=== PATIENT | female | born 1970 | race Caucasian/White ===

== ENCOUNTER 2022-04-16 10:18 | Outpatient (CLI) | payer BC, SELFPAY ==
[2022-04-16 12:32] LABS: Albumin* 4.9 g/dL (3.3-5.0); Chloride* 101 mmol/L (96-114); Sodium* 141 mmol/L (135-149)
[2022-04-16 12:34] LABS: Bilirubin Total* 0.8 mg/dL (0.1-1.5); Carbon Dioxide* 32 mmol/L (20-32); Cholesterol* 224 mg/dL (90-199); Creatinine* 0.9 mg/dL (0.5-1.5); Estimated Glomerular Filt Rate 76 ml/min; Total Protein* 8.3 g/dL (6.0-8.3)
[2022-04-16 12:35] LABS: Alanine Aminotransferase* 22 U/L (4-35); Alkaline Phosphatase* 123 U/L (40-150); Aspartate Amino Transferase* 31 U/L (12-35); Blood Urea Nitrogen* 24 mg/dL (7-30); Glucose* 98 mg/dL (60-115); HDL Cholesterol* 47 mg/dL (>=50); LDL Cholesterol Calculated 136 mg/dL (<100); Triglycerides* 205 mg/dL (40-149)
== END 2022-04-16 10:19 | disposition home or self-care (01) ==
LOC: NFLDREF 10:21
PROVIDERS: PCP Physician Assistant Medical; Visit Provider Physician Assistant Medical
DX: Z00.00 Encounter for general adult medical examination without abnormal findings (principal); E78.5 Hyperlipidemia, unspecified; I10 Essential (primary) hypertension; D58.2 Other hemoglobinopathies; G47.9 Sleep disorder, unspecified; J01.90 Acute sinusitis, unspecified
CPT/HCPCS: 80053; 80061

== ENCOUNTER 2022-04-21 14:56 | Outpatient (CLI) | payer BC, SELFPAY ==
[2022-04-25 01:05] LABS: Erythropoietin 7 mU/mL (4-27)
== END 2022-04-21 14:57 | disposition home or self-care (01) ==
LOC: LAB 14:59
PROVIDERS: PCP Physician Assistant Medical; Visit Provider Physician Assistant Medical
DX: D58.2 Other hemoglobinopathies (principal); I10 Essential (primary) hypertension
CPT/HCPCS: 36415; 82668; 84443

== ENCOUNTER 2022-04-29 09:20 | Outpatient (CLI) | payer BC, SELFPAY ==
[2022-04-29 13:27] LABS: Iron* 190 ug/dL (37-170)
[2022-04-29 13:36] LABS: Percent Iron Saturation 56 % (20-50); Total Iron Binding Capacity 341 ug/dL (265-497)
[2022-04-29 17:19] LABS: Ferritin* 64.3 ng/mL (11.1-264.0)
== END 2022-04-29 09:21 | disposition home or self-care (01) ==
PROVIDERS: PCP Physician Assistant Medical; Visit Provider Physician Assistant Medical
DX: D58.2 Other hemoglobinopathies (principal); I10 Essential (primary) hypertension
CPT/HCPCS: 82728; 83540; 83550; 87086

== ENCOUNTER 2022-06-22 15:27 | Outpatient (CLI) | payer BC, SELFPAY ==
--- NOTE | 2022-06-22 15:40 | CRLHL7_ITS ---
For Patients: As a result of the Century Cures Act, medical imaging exams and procedure reports are released immediately into your electronic medical record. You may view this report before your referring provider. If you have questions, please contact your health care provider. BILATERAL SCREENING MAMMOGRAM WITH COMPUTER-AIDED DETECTION TECHNIQUE: CC and MLO views were obtained. These mammographic images have been obtained using full-field digital technique. These mammographic images were interpreted with the benefit of computer-aided detection. COMPARISON FILM: 05/05/18, 04/30/13, 07/11/10. FINDINGS: There are scattered areas of fibroglandular density IMPRESSION: There is no radiographic evidence for malignancy. ASSESSMENT: BI-RADS Category 1: Negative RECOMMENDATION: Routine screening mammogram in 1 year. A lay language report of this examination will be provided to the patient. Jordan Hernandez M.D. Diagnostic Radiologist [email or web address] NINA/jaye / be/Dictated by: Jordan Hernandez MD @ 06/23/2022 12:14:00 PM (Electronically Signed)
--- NOTE | 2022-06-30 11:03 | ONC.NURNOTE ---
Addendum entered by Yeimy Tse RN 09/16/22 10:00: This patient was discussed with Dr. Holman yesterday, and she is okay to be seen in September. She does want patient to start on 81mg of aspirin daily until she is seen, left message on machine for patient informing her of this and to call with any questions. Addendum entered by Yeimy Tes RN 07/27/22 11:21: Manager Android notified by nursing that patient called back on 07/15/22 stating that she needed an appointment at 1600. She was told that Dr. Hauser does not see patients this late in the day, patient told nursing that she would call back once she reaches out to substitutes. No return call to [facility], so another message left for patient asking to call back and schedule per Elisha Mas. Will hold onto referral for two more weeks. Addendum entered by Yeimy Tse RN 07/08/22 09:08: Left messages on 07/02/2022 and 07/08/2022 - no return calls. Ordering provider office notified. Original Note: Late entry: LMOM for patient to call office to schedule consult 06/29/2022.
== END 2022-06-22 15:28 | disposition home or self-care (01) ==
LOC: MAMMO 15:27
PROVIDERS: PCP Physician Assistant Medical; Visit Provider Physician Assistant Medical
DX: Z12.31 Encounter for screening mammogram for malignant neoplasm of breast (principal)
CPT/HCPCS: 77063; 77067

== ENCOUNTER 2022-10-21 14:25 | Outpatient (RCR) | payer BC, SELFPAY ==
[2022-10-21 16:18] LABS: Basophils Absolute Auto 0.03 K/uL (0.00-0.30); Basophils Percent Auto 0.5 % (0.0-3.0); Eosinophils Absolute Auto 0.41 K/uL (0.00-0.50); Eosinophils Percent Auto 6.3 % (0.0-7.0); Hematocrit 46.9 % (33.0-51.0); Hemoglobin* 15.6 gm/dL (12.0-16.0); Immature Granulocytes Abs Auto 0.01 K/uL (0.00-0.30); Immature Granulocytes Pct Auto 0.2 %; Lymphocytes Absolute Auto 1.88 K/uL (0.90-2.90); Lymphocytes Percent Auto 29.1 % (20-44); Mean Corpuscular HGB Conc 33 gm/dL (32-36); Mean Corpuscular Hemoglobin 31 pg (26-34); Mean Corpuscular Volume 94 fL (80-100); Monocytes Percent Auto 8.2 % (0.0-11.0); Neutrophils Absolute Auto 3.61 K/uL (1.7-7.0); Neutrophils Percent Auto 55.7 % (42.0-72.0); Platelet Count* 246 K/uL (140-440); RDW Coefficient of Variation % 12.6 % (11.5-15.5); Red Blood Count 4.98 m/uL (4.00-5.20); White Blood Count* 6.47 K/uL (4.50-11.00)
[2022-10-21 16:36] LABS: Slide Review Reflex No
[2022-10-21 16:56] LABS: Albumin* 4.7 g/dL (3.3-5.0)
[2022-10-21 16:58] LABS: Cholesterol* 206 mg/dL (90-199)
[2022-10-21 16:59] LABS: Alanine Aminotransferase* 25 U/L (4-35); Alkaline Phosphatase* 90 U/L (40-150); Aspartate Amino Transferase* 30 U/L (12-35); Bilirubin Direct* 0.2 mg/dL (0.0-0.5); Bilirubin Total* 0.7 mg/dL (0.1-1.5); HDL Cholesterol* 69 mg/dL (>=50); LDL Cholesterol Calculated 100 mg/dL (<100); Triglycerides* 183 mg/dL (40-149)
[2022-10-23 15:48] LABS: Erythropoietin 8 mU/mL (4-27)
--- NOTE | 2022-11-30 13:55 | ONC.NURNOTE ---
Patient called and updated on results of all testing and plan. Dr. Holman stated labs are negative and there was no bone marrow issue and she should follow up every 6 months with CBC with primary. Patient already had labs done 11/29/2022
== END 2023-04-19 23:59 | disposition home or self-care (01) ==
LOC: CCIC 14:25
PROVIDERS: Clinical Nurse Specialist; PCP Physician Assistant Medical; Visit Provider Internal Medicine Hematology & Oncology
DX: D58.2 Other hemoglobinopathies (principal)
CPT/HCPCS: 36415; 80061; 80076; 81219; 81270; 82668; 85025; 99202; 99203; 99212

== ENCOUNTER 2022-11-17 14:51 | Outpatient (CLI) | payer BC, SELFPAY ==
[2022-11-21 09:05] LABS: Renin Activity 0.3 ng/mL/hr
== END 2022-11-17 14:52 | disposition home or self-care (01) ==
PROVIDERS: PCP Physician Assistant Medical; Visit Provider Physician Assistant Medical
DX: I10 Essential (primary) hypertension (principal); E78.5 Hyperlipidemia, unspecified; E87.6 Hypokalemia; F41.9 Anxiety disorder, unspecified; F32.A Depression, unspecified
CPT/HCPCS: 82088; 84244; 84443

== ENCOUNTER 2023-09-08 07:53 | Outpatient (CLI) | payer BC, SELFPAY | END 2023-09-08 07:54 | disposition home or self-care (01) | LOC: NFLDREF 09-09 13:49 | PROVIDERS: PCP Physician Assistant Medical; Referring Provider Physician Assistant Medical; Visit Provider Physician Assistant Medical | DX: Z00.00 Encounter for general adult medical examination without abnormal findings (principal); E78.5 Hyperlipidemia, unspecified; I10 Essential (primary) hypertension; R53.83 Other fatigue; Z79.899 Other long term (current) drug therapy | CPT/HCPCS: 80061; 87086 ==

== ENCOUNTER 2023-09-14 16:22 | Outpatient (CLI) | payer BC, SELFPAY ==
[2023-09-14 23:40] LABS: Chlamydia DNA Amplified* NOT DETECTED (No Detected); GC DNA Amplified* NOT DETECTED (No Detected)
== END 2023-09-14 16:23 | disposition home or self-care (01) ==
PROVIDERS: PCP Physician Assistant Medical; Visit Provider Physician Assistant Medical
DX: Z00.00 Encounter for general adult medical examination without abnormal findings (principal); R53.83 Other fatigue; I10 Essential (primary) hypertension; E78.5 Hyperlipidemia, unspecified; E87.6 Hypokalemia; Z79.899 Other long term (current) drug therapy
CPT/HCPCS: 80053; 82306; 84443; 87491; 87591

== ENCOUNTER 2023-11-25 15:41 | Outpatient (CLI) | payer BC, SELFPAY ==
--- NOTE | 2023-11-25 16:00 | CT_ITS ---
Patient: RENE GODINEZ Facility:?[facility] Patient ID:?[id number] Site Patient ID:?[id number]. Site :?1970 Study:?CT-Chest W/O LOW DOSE LUNG SCREENING-11/25/2023 4:14:10 PM Ordering Physician:LISA Final Report: INDICATION: Lung cancer screening. Smoking history. TECHNIQUE: CT chest low dose without contrast. COMPARISON: None. FINDINGS: Lungs and pleural spaces: No suspicious nodules or infiltrates. Pleural spaces are clear. Heart and vasculature: Heart size is normal. Thoracic aorta and pulmonary artery are normal in caliber. Lymph nodes and mediastinum: No mediastinal, hilar, or axillary adenopathy. Chest wall: Unremarkable. Upper abdomen: Normal. Bones: 2.8 cm osseous excrescence arising from the medial aspect of the scapula with marrow continuity. IMPRESSION: 1. No suspicious lung lesions. Lung-RADS Category 1: NEGATIVE. Continue annual screening with LDCT in 12 months. 2. 2.8 cm osseous excrescence arising from the medial aspect of the scapula with marrow continuity. Findings consistent with an osteochondroma Please note that all CT scans at this facility use dose modulation, iterative reconstruction, and/or weight-based dosing when appropriate to reduce radiation dose to as low as reasonably achievable. Dictated by Vamshi Tipton MD @ 11/26/2023 11:21:50 PM Signed by:?Vamshi Tipton MD @11/26/2023 11:21:50 PM (Electronic Signature)
== END 2023-11-25 15:42 | disposition home or self-care (01) ==
PROVIDERS: PCP Physician Assistant Medical; Visit Provider Physician Assistant Medical
DX: Z12.2 Encounter for screening for malignant neoplasm of respiratory organs (principal); Z87.891 Personal history of nicotine dependence
CPT/HCPCS: 71271

== ENCOUNTER 2024-02-01 15:18 | Outpatient (CLI) | payer BC, SELFPAY ==
--- NOTE | 2024-02-01 15:20 | MM_ITS ---
Patient: RENE GODINEZ Facility:?[facility] Patient ID:?[id number] Site Patient ID:?[id number]. Site :?1970 Study:?XRay-Breast Bilateral 3D W/CAD-02/01/2024 3:42:08 PM Ordering Physician:?Elisha Zaldivar Final Report: BILATERAL SCREENING MAMMOGRAM WITH COMPUTER-AIDED DETECTION AND TOMOSYNTHESIS TECHNIQUE: CC and MLO views were obtained. These mammographic images have been obtained using full-field digital technique. These mammographic images were interpreted with the benefit of computer-aided detection. Breast Tomosynthesis was used in this interpretation. COMPARISON FILM: 06/22/22, 05/05/18, 01/06/16. FINDINGS: There are scattered areas of fibroglandular density. IMPRESSION: There is no radiographic evidence for malignancy. ASSESSMENT: BI-RADS Category 2: Benign RECOMMENDATION: Routine screening mammogram in 1 year. A lay language report of this examination will be provided to the patient. Jordan Hernandez M.D. Diagnostic Radiologist [email or web address] DSM/sp R& Transcribed: 7:40 p.m. SP/Dictated by: Jordan Hernandez MD @ 02/02/2024 8:39:00 AM Signed by:?Jordan Hernandez MD @02/02/2024 8:30:05 PM (Electronic Signature)
== END 2024-02-01 15:19 | disposition home or self-care (01) ==
PROVIDERS: PCP Physician Assistant Medical; Visit Provider Physician Assistant Medical
DX: Z12.31 Encounter for screening mammogram for malignant neoplasm of breast (principal)
CPT/HCPCS: 77063; 77067

== ENCOUNTER 2025-01-07 16:48 | Outpatient (CLI) | payer BC, SELFPAY | END 2025-01-07 16:49 | disposition home or self-care (01) | LOC: LKVREF 16:48 | PROVIDERS: PCP Physician Assistant Medical; Visit Provider Physician Assistant Medical | DX: I10 Essential (primary) hypertension (principal) | CPT/HCPCS: 80053 ==